=== PATIENT | female | born 1955 | race Caucasian/White ===

== ENCOUNTER 2017-09-28 22:58 | Emergency (ER) | payer BC, OTHER ==
[2017-09-28] MEDS ORDERED: HYDROmorphone 1 MG/ML Syringe IM ONE (23:06)
[2017-09-29 00:33] VITALS: BP 117/52
[2017-09-29] MEDS ORDERED: Take Home: Cyclobenzaprine 10 MG Tab, 4 Tab Pack PO ONE (00:34)
[2017-09-29] MEDS ORDERED: Take Home: Acetaminophen/HYDROcodone 325-10 MG, 5 Tab Pack PO ONE (00:34)
--- NOTE | 2017-09-29 10:40 | EDM.PDOC ---
ED HPI GENERAL MEDICAL PROBLEM - General Chief Complaint: Back Pain or Injury Stated Complaint: Back Pain Time Seen by Provider: 09/28/17 23:06 Source of Information: Reports: Patient History Limitations: Reports: No Limitations - History of Present Illness INITIAL COMMENTS - FREE TEXT/NARRATIVE: Pt. presents to ER with complaints of low back pain with R lower extremity radiculopathy. Pt. states that this started today. She did a lot of walking and also was sitting in a bench outside of an extended period of time. She states that she has a history of low back pain and sciatica in her L lower extremity in the past as well. She denies any fever or chills. No saddle anesthesia. No incontinence. She denies any trauma to the area. Treatments [employer] WE[employer] DES[employer]ER: Reports: Cold Therapy, NSAIDS, Other (see below) Other Treatments [employer] DES[employer]: Heat Back/Leg Pain Score (Numeric/FACES): 8 - Related Data Allergies Allergy/AdvReac Type Severity Reaction Status Date / Time iodine Allergy Hives Verified 09/28/17 23:06 latex Allergy Itching Verified 09/28/17 23:06 Home Meds: Home Meds Aspirin [Halfprin] 81 mg PO DAILY 12/27/14 [History] Calcium Carbonate/Vitamin D3 [Caltrate 600 + D Tablet] 1 tab PO DAILY 12/27/14 [ History] Cholecalciferol (Vitamin D3) [Vitamin D3] 1,000 unit PO DAILY 12/27/14 [History] Doxycycline [Vibramycin] 100 mg PO BID PRN 12/27/14 [History] Fish Oil/[place]-3 Fatty Acids [Fish Oil 1,000 MG] 1,000 mg PO DAILY 12/27/14 [ History] Ibuprofen [Advil] 200 - 600 mg PO DAILY PRN 12/27/14 [History] Ranitidine HCl [Zantac] 150 mg PO DAILY 08/04/15 [History] LORazepam 1 mg PO ASDIRECTED PRN 04/23/16 [History] Past Medical History Other HEENT History: REPAIR OF BROW PTOSIS Cardiovascular History: Reports: None Respiratory History: Reports: None Gastrointestinal History: Reports: Cholelithiasis, GERD, Hiatal Hernia Other Gastrointestinal History: DYSPEPSIA Genitourinary History: Reports: None 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: Other OB/BYN History: DIFFUSE CYSTIC MASTOPATHY Other Musculoskeletal History: TRIGGER FINGER RELEASE Neurological History: Reports: Headaches, Chronic Other Psychiatric History: DYSTHIMIA Other Endocrine/Metabolic History: fatigue Hematologic History: Reports: None Immunologic History: Reports: None Oncologic (Cancer) History: Reports: None Other Dermatologic History: ROSACEA - Past Surgical History Head Surgeries/Procedures: Reports: None Other HEENT Surgeries/Procedures: REPAIR OF BROW PTOSIS Cardiovascular Surgical History: Reports: None Female Surgical History: Reports: Section, LEEP Other Musculoskeletal Surgeries/Procedures:: TRIGGER FINGER RELEASE RIGHT THUMB Social & Family History - Tobacco Use Smoking Status *Q: Former Smoker Used Tobacco, but Quit: Yes Month/Year Tobacco Last Used: 30 years - Caffeine Use Caffeine Use: Reports: Coffee - Recreational Drug Use Recreational Drug Use: No ED ROS GENERAL - Review of Systems Review Of Systems: See Below Constitutional: Reports: No Symptoms HEENT: Reports: No Symptoms Respiratory: Reports: No Symptoms Cardiovascular: Reports: No Symptoms Endocrine: Reports: No Symptoms GI/Abdominal: Reports: No Symptoms : Reports: No Symptoms Musculoskeletal: Reports: Back Pain Skin: Reports: No Symptoms Neurological: Reports: Paresthesia (R lower extremity) Psychiatric: Reports: No Symptoms Hematologic/Lymphatic: Reports: No Symptoms ED EXAM, GENERAL - Physical Exam Exam: See Below Exam Limited By: No Limitations General Appearance: Alert, WD/WN, No Apparent Distress Throat/Mouth: Normal Inspection, Normal Lips, Normal Teeth, Normal Gums, Normal Oropharynx, Normal Voice, No Airway Compromise Head: Atraumatic, Normocephalic Neck: Normal Inspection, Supple, Non-Tender, Full Range of Motion Respiratory/Chest: No Respiratory Distress, Lungs Clear, Normal Breath Sounds, No Accessory Muscle Use, Chest Non-Tender Cardiovascular: Normal Peripheral Pulses, Regular Rate, Rhythm, No Edema, No Gallop, No JVD, No Murmur, No Rub Peripheral Pulses: 4+: Posterior Tibial (L), Posterior Tibial (R) Back Exam: Decreased Range of Motion, Muscle Spasm, Paraspinal Tenderness, Vertebral Tenderness Extremities: Normal Inspection, Normal Range of Motion, Non-Tender, Normal Capillary Refill, No Pedal Edema Neurological: Other (R lower extremity radiculopathy, radiating to front of leg) Course - Vital Signs Last Recorded V/S: Last Vital Signs Temp 36.9 C 09/29/17 00:31 Pulse 57 L 06/17/18 00:31 Resp 18 09/29/17 00:31 BP 117/52 L 09/29/17 00:31 Pulse Ox 98 09/29/17 00:31 - Orders/Labs/Meds Orders: Active Orders 24 hr Category Date Time Status Lumbar Spine 2 or 3V [CR] Stat Exams 09/28/17 23:06 Taken Meds: Medications Discontinued Medications Generic Name Dose Route Start Last Admin Trade Name El PRN Reason Stop Dose Admin Hydrocodone Bitart/Acetaminophen 1 packet 09/29/17 00:34 09/29/17 00:43 Take Home: Acetaminophen/Hydrocodone 325-10mg PO 09/29/17 00:35 1 packet ONETIME ONE Administration Cyclobenzaprine HCl 1 packet 09/29/17 00:34 09/29/17 00:43 Take Home: Cyclobenzaprine 10 Mg, 4 Tab Pack PO 09/29/17 00:35 1 packet ONETIME ONE Administration Hydromorphone HCl 1 mg 09/28/17 23:06 09/28/17 23:13 Dilaudid IM 09/28/17 23:07 1 mg ONETIME ONE Administration Departure - Departure Time of Disposition: 01:11 Disposition: Home, Self-Care 01 Clinical Impression: Sciatica, Low back pain radiating to right leg - Discharge Information Instructions: Acetaminophen; Hydrocodone tablets or capsules, Cyclobenzaprine tablets, Radicular Pain, Back Pain, Adult, [id number] Referrals: Michelle Anguiano PA-C [Primary Care Provider] - Forms: ED Department Discharge Additional Instructions: Cyclobenzaprine 10mg three times daily Lynch 10/325mg 1 every 6 hours as needed for pain Ibuprofen 600mg every 6-8 hours as needed for pain Physical therapy will contact you regarding an appointment - My Orders Last 24 Hours: My Active Orders 09/28/17 23:06 Lumbar Spine 2 or 3V [CR] Stat - Assessment/Plan Last 24 Hours: My Active Orders 09/28/17 23:06 Lumbar Spine 2 or 3V [CR] Stat Plan: Cyclobenzaprine 10mg three times daily Lynch 10/325mg 1 every 6 hours as needed for pain Ibuprofen 600mg every 6-8 hours as needed for pain Physical therapy will contact you regarding an appointment
== END 2017-09-29 01:11 | disposition home or self-care (01) ==
LOC: VM.ED 22:58
DX: M54.41 Lumbago with sciatica, right side (principal); Z91.040 Latex allergy status; Z91.048 Other nonmedicinal substance allergy status; Z79.82 Long term (current) use of aspirin; Z79.899 Other long term (current) drug therapy; Z87.891 Personal history of nicotine dependence
CPT/HCPCS: 72100; 96372; 99283; A9270; J1170

== ENCOUNTER 2019-05-06 09:33 | Day surgery (SDC) | payer MEDICARE, BC ==
[~2019-05-06 09:33] MED LIST: Sodium Chloride 0.9% 10 ML Syringe FLUSH PRN
[2019-05-06] MEDS ORDERED: Propofol 200 MG/20 ML SDV ONE (09:40)
[2019-05-06] MEDS ORDERED: fentaNYL 100 MCG/2 ML SDV ONE (09:40)
[2019-05-06] MEDS: Lactated Ringers 1,000 ML IV SCH (10:07)
[2019-05-06] MEDS: Citric Acid/Sodium Citrate Solution 30 ML Cup PO STA (10:12)
[2019-05-06 11:49] VITALS: BP 112/67; PULSE 60
--- NOTE | 2019-05-06 18:01 | OR ---
PREOPERATIVE DIAGNOSIS: Hiatal hernia with gastroesophageal reflux disease and a family history of esophageal cancer. POSTOPERATIVE DIAGNOSIS: A 6 cm hiatal hernia with gastroesophageal reflux disease and esophageal web and distal esophageal inflammation. PROCEDURE: Esophagogastroduodenoscopy with biopsies. ANESTHESIA: MAC. FINDINGS: A large 6 cm hiatal hernia with associated proximal esophageal web with associated esophageal inflammation. Diaphragm is at 36 cm with the GE junction at 30 cm. Mild antritis. INDICATIONS FOR PROCEDURE: The patient has a known family history of esophageal cancer and a personal history of a hiatal hernia. She suffers from significant heartburn and gastroesophageal reflux disease. DETAILS OF PROCEDURE: After obtaining informed consent, the patient was brought to the operating room and monitored anesthesia administered. A lubricated lighted EGD scope was introduced in to her mouth and the patient was able to swallow the scope and the esophagus was intubated. We did note a low profile esophageal web at approximately 30 cm from incisors. There was associated inflammation. A large 6 cm hiatal hernia was then noted with the diaphragm at approximately 36 cm. There was some mild antritis which was biopsied with the forceps. We then traversed the duodenum and the D1, D2, and D3 segments were normal. We then retroflexed the scope to reveal the large hiatal hernia opening. There was no other pathology. We did pull the scope back up into the hiatal hernia and biopsied the esophageal ring several times with the biopsy forceps. The stomach was then desufflated and the scope removed. The patient will have upper GI contrast study and see me in clinic for consultation regarding hiatal hernia repair. CJM: 05/06/2019 11:22:39 MODL: 05/06/2019 17:53:20 /[id number]
== END 2019-05-06 12:20 | disposition home or self-care (01) ==
LOC: VM.SDS 09:33
PROVIDERS: ATTEND Surgery
DX: K44.9 Diaphragmatic hernia without obstruction or gangrene (principal); K21.0 Gastro-esophageal reflux disease with esophagitis; Q39.4 Esophageal web; K29.50 Unspecified chronic gastritis without bleeding; K31.89 Other diseases of stomach and duodenum; M85.89 Other specified disorders of bone density and structure, multiple sites; L71.9 Rosacea, unspecified; H90.42 Sensorineural hearing loss, unilateral, left ear, with unrestricted hearing on the contralateral side; Z91.040 Latex allergy status; Z88.8 Allergy status to other drugs, medicaments and biological substances; Z79.899 Other long term (current) drug therapy; Z80.0 Family history of malignant neoplasm of digestive organs
CPT/HCPCS: 00731; 43239; A9270; J2704; J3010; J7120